=== PATIENT | female | born 1950 | race Caucasian/White ===

== ENCOUNTER 2016-06-22 12:39 | Inpatient (IN) | payer OTHER ==
[~2016-06-22] VITALS: Ht 157.5 cm; Wt 98.9 kg
[2016-06-22 12:39] VITALS: BP_SYST 146
[2016-06-22 14:10] LABS: BASOPHILS % (AUTO) 0.4 % (0.0-2.0); EOSINOPHILS # (AUTO) 0.2 K/uL (0.0-0.4); HEMOGLOBIN 10.7 g/dL (12.0-16.0); MEAN CORPUSCULAR HEMOGLOBIN 36 pg (27-31); WHITE BLOOD COUNT (AUTO) 9.8 K/uL (4.8-10.8)
[2016-06-22 14:20] LABS: ANION GAP 10 (5-15); CHLORIDE 95 mmol/L (98-107); GLUCOSE 354 mg/dL (70-99); POTASSIUM 3.5 mmol/L (3.5-5.1); SODIUM SERUM 127 mmol/L (136-145); UREA NITROGEN, BLOOD 37 mg/dL (8-21)
[2016-06-22 14:21] LABS: EOSINOPHILS % (AUTO) 1.7 % (0.0-4.0); GFR AFRICAN AMERICAN 34 mL/min (>90); MEAN CORPUSCULAR HGB CONC 34 % (32-36); MEAN CORPUSCULAR VOLUME 107 fL (79.0-98.0); MONOCYTES # (AUTO) 0.9 K/uL (0.0-1.0); MONOCYTES % (AUTO) 8.9 % (1.7-9.3); NEUTROPHILS # (AUTO) 7.7 K/uL (1.8-7.7); PLATELET COUNT (AUTO) 258 K/uL (130-430); RED CELL DISTRIBUTION WIDTH 18.4 % (9.0-15.0)
[2016-06-22 14:23] LABS: INR 1.1 (0.8-1.2); PROTHROMBIN TIME 11.9 SECS (9.5-12.5)
[2016-06-22 14:37] LABS: ALANINE AMINOTRANSFERASE 60 U/L (12-78); ALBUMIN 1.7 g/dL (3.4-4.8); ASPARTATE AMINOTRANSFERASE 87 U/L (10-37); TOTAL BILIRUBIN 1.7 mg/dL (0.0-1.0)
[2016-06-22 14:38] LABS: ALCOHOL, BLOOD < 3 mg/dL (<10)
[2016-06-22] MEDS ORDERED: PIPERACILLIN/TAZO 3.375 GM in NS 50 ML IV ONE (15:00)
[2016-06-22] MEDS ORDERED: NS 500 ML IV ONE (15:00)
[2016-06-22] MEDS ORDERED: LACTULOSE 20 GM/30 ML UDC PO ONE ×2 (15:00→16:30)
[2016-06-22] MEDS ORDERED: ONDANSETRON HCL 4 MG/2 ML VIAL IVP ONE (15:45)
[2016-06-22 16:05] LABS: BILIRUBIN,URINE NEGATIVE (NEGATIVE); BLOOD, URINE NEGATIVE (NEGATIVE); CLARITY/URINE HAZY (CLEAR); COLOR,URINE YELLOW (YELLOW); GLUCOSE,URINE NEGATIVE (NEGATIVE); KETONES,URINE TRACE (NEGATIVE); LEUKOCYTE ESTERASE ,URINE NEGATIVE (NEGATIVE); NITRITE, URINE NEGATIVE (NEGATIVE); PROTEIN URINE NEGATIVE (NEGATIVE); UROBILINOGEN,URINE 0.2 (0.2-1.0)
[2016-06-22] MEDS ORDERED: DEXTROSE 50% JECT 50 ML DISP.SYRIN IVP PRN (16:15)
[2016-06-22 16:20] LABS: BARBITURATE, URINE NEGATIVE (NEG <=200); BENZODIAZEPINE, URINE NEGATIVE (NEG <=150); CANNABINOID, URINE NEGATIVE (NEG <=50); COCAINE, URINE NEGATIVE (NEG <=150); METHAMPHETAMINES SCREEN,URINE NEGATIVE (NEG <=500); OPIATE, URINE NEGATIVE (NEG <=100); PHENCYCLIDINE SCREEN,URINE NEGATIVE (NEG <=25); UR TRICYCLIC ANTIDEPRESSANTS NEGATIVE (NEG <=300); URINE AMPHETAMINE NEGATIVE (NEG <=500); URINE METHADONE NEGATIVE (NEG <=200); URINE OXYCODONE SCREEN NEGATIVE (NEG <=100); URINE PROPOXYPHENE SCREEN NEGATIVE (NEG <=300)
[2016-06-22 16:25] VITALS: BP_SYST 117
[2016-06-22 16:28] LABS: BACTERIA,URINE MODERATE /HPF (None Seen); RBC,URINE 0-3 /HPF (0-3)
[2016-06-22 16:29] LABS: FINE GRANULAR CASTS,URINE 0-1 /LPF (None Seen); HYALINE CASTS, URINE 0-2 /LPF (None Seen)
[2016-06-22] MEDS ORDERED: LEVOFLOXACIN 250 MG/D5W 50 ML IV SCH ×2 (16:30→21:00)
[2016-06-22 16:42] VITALS: BP_SYST 104
[2016-06-22] MEDS: NACL 0.9% 1,000 ML IV SCH ×2 (16:54→23:51)
[2016-06-22] MEDS ORDERED: LEVOFLOXACIN 500 MG/D5W 100 ML IV ONE (17:00)
[2016-06-22] MEDS: ERYTHROMYCIN BASE 500 MG TABLET PO SCH ×2 (18:10→23:54)
[2016-06-22] MEDS: INSULIN REGULAR, HUMAN 100 UNITS/ML, 10 ML VIAL (novoLIN R) SUBCUT PRN ×2 (18:12→20:37)
[2016-06-22] MEDS ORDERED: MIDO5TAB20 PO (19:31)
[2016-06-22] MEDS ORDERED: CALC-1197 PO (19:31)
[2016-06-22] MEDS ORDERED: RIFA550T5 PO (19:31)
[2016-06-22] MEDS ORDERED: NPH,100V SUBCUT (19:31)
[2016-06-22] MEDS ORDERED: LACT10SO66 PO (19:31)
[2016-06-22] MEDS ORDERED: METO2.5T6 PO (19:31)
[2016-06-22] MEDS ORDERED: DEXT-81 PO (19:31)
[2016-06-22] MEDS ORDERED: loratadine (19:31)
[2016-06-22] MEDS ORDERED: DIPH25CA83 PO (19:31)
[2016-06-22] MEDS ORDERED: TRAM100T13 PO (19:31)
[2016-06-22] MEDS ORDERED: ASCO500T20 PO (19:31)
[2016-06-22] MEDS ORDERED: ASPI-1063 PO (19:31)
[2016-06-22] MEDS ORDERED: SPIR25TA PO (19:31)
[2016-06-22] MEDS ORDERED: [UNRECOGNIZED DRUG - OTHER] (19:31)
[2016-06-22] MEDS ORDERED: ALLO100T PO (19:31)
[2016-06-22] MEDS ORDERED: FERR256T PO (19:31)
[2016-06-22] MEDS ORDERED: MULT-1089 PO (19:31)
[2016-06-22] MEDS ORDERED: FURO80TA3 PO (19:31)
[2016-06-22] MEDS: LACTULOSE 20 GM/30 ML UDC PO SCH (20:32)
[2016-06-22 20:38] VITALS: BP_SYST 118
[2016-06-23 00:22] VITALS: BP_SYST 120
[2016-06-23 04:46] VITALS: BP_SYST 112
[2016-06-23] MEDS: NACL 0.9% 1,000 ML IV SCH ×2 (06:15→09:35)
[2016-06-23] MEDS: INSULIN REGULAR, HUMAN 100 UNITS/ML, 10 ML VIAL (novoLIN R) SUBCUT PRN ×4 (06:19→22:11)
[2016-06-23] MEDS: ERYTHROMYCIN BASE 500 MG TABLET PO SCH ×2 (06:20→11:29)
[2016-06-23 07:46] LABS: BASOPHILS # (AUTO) 0.1 K/uL (0.0-0.2); BASOPHILS % (AUTO) 0.7 % (0.0-2.0); EOSINOPHILS # (AUTO) 0.4 K/uL (0.0-0.4); EOSINOPHILS % (AUTO) 4.9 % (0.0-4.0); HEMATOCRIT 27.6 % (36-48); LYMPHOCYTES # (AUTO) 1.1 K/uL (1.0-5.5); LYMPHOCYTES % (AUTO) 12.8 % (20.5-51.5); MEAN CORPUSCULAR HEMOGLOBIN 35 pg (27-31); MEAN CORPUSCULAR HGB CONC 33 % (32-36); MEAN CORPUSCULAR VOLUME 106 fL (79.0-98.0); MONOCYTES # (AUTO) 0.9 K/uL (0.0-1.0); MONOCYTES % (AUTO) 10.1 % (1.7-9.3); NEUTROPHILS # (AUTO) 5.9 K/uL (1.8-7.7); NEUTROPHILS % (AUTO) 71.5 % (40.0-70.0); PLATELET COUNT (AUTO) 249 K/uL (130-430); RED BLOOD CELL COUNT(AUTO) 2.59 MIL/uL (4.2-6.2); RED CELL DISTRIBUTION WIDTH 18.2 % (9.0-15.0); WHITE BLOOD COUNT (AUTO) 8.4 K/uL (4.8-10.8)
[2016-06-23 08:11] LABS: IRON (SERUM) 73 mcg/dL (37-145)
[2016-06-23 08:12] VITALS: BP_SYST 128
[2016-06-23 08:12] LABS: TOTAL IRON BIND. CAPACITY 196 ug/dL (250-450)
[2016-06-23 08:17] LABS: ALBUMIN 1.4 g/dL (3.4-4.8); CALCIUM 8.1 mg/dL (8.4-11.0); CREATININE 1.74 mg/dL (0.55-1.30); POTASSIUM 3.3 mmol/L (3.5-5.1); THYROID STIMULATING HORMONE 1.24 uIu/mL (0.34-4.82); TOTAL BILIRUBIN 1.3 mg/dL (0.0-1.0); TOTAL PROTEIN, SERUM 4.4 g/dL (6.4-8.3)
[2016-06-23] MEDS: LACTULOSE 20 GM/30 ML UDC PO SCH ×3 (08:39→22:06)
[2016-06-23] MEDS ORDERED: ASCORBIC ACID 500 MG TABLET PO SCH (09:00)
[2016-06-23 12:26] VITALS: BP_SYST 117
[2016-06-23] MEDS ORDERED: POTASSIUM CHLORIDE 20 MEQ TAB.PRT.SR PO ONE (14:15)
[2016-06-23] MEDS: LACTOBACILLUS RHAMNOSUS GG 1 CAP CAPSULE PO SCH ×2 (15:11→22:07)
[2016-06-23] MEDS ORDERED: MIDODRINE HCL 5 MG TABLET (PROAMATINE) PO ONE (16:15)
[2016-06-23] MEDS ORDERED: ALLOPURINOL 100 MG TABLET (ZYLOPRIM) PO ONE (16:15)
[2016-06-23] MEDS ORDERED: ASPIRIN 81 MG TABLET(ECOTRIN) PO ONE (16:30)
[2016-06-23] MEDS ORDERED: MULTIVITAMINS TAB 1 TABLET PO ONE (16:30)
[2016-06-23] MEDS ORDERED: ASCORBIC ACID 500 MG TABLET PO ONE ×2 (16:30→16:45)
[2016-06-23] MEDS ORDERED: LEVOFLOXACIN 250 MG/D5W 50 ML IV SCH (16:30)
[2016-06-23] MEDS ORDERED: INSULIN NPH 100 UNITS/ML 10 ML VIAL SUBCUT ONE (16:45)
[2016-06-23 16:57] VITALS: BP_SYST 113
[2016-06-23] MEDS: VANCOMYCIN HCL 250 MG CAPSULE PO SCH ×2 (16:59→22:07)
[2016-06-23 18:49] LABS: BILIRUBIN,URINE NEGATIVE (NEGATIVE); BLOOD, URINE NEGATIVE (NEGATIVE); CLARITY/URINE CLEAR (CLEAR); COLOR,URINE YELLOW (YELLOW); GLUCOSE,URINE 1+ (NEGATIVE); KETONES,URINE TRACE (NEGATIVE); LEUKOCYTE ESTERASE ,URINE NEGATIVE (NEGATIVE); NITRITE, URINE NEGATIVE (NEGATIVE); PROTEIN URINE NEGATIVE (NEGATIVE); UROBILINOGEN,URINE 0.2 (0.2-1.0)
[2016-06-23 19:04] LABS: BACTERIA,URINE RARE /HPF (None Seen); RBC,URINE NONE SEEN /HPF (0-3); YEAST,URINE Moderate /HPF (None Seen)
[2016-06-23 20:07] VITALS: BP_SYST 125
[2016-06-23] MEDS ORDERED: metroNIDAZOLE 500 MG TABLET PO SCH (21:00)
[2016-06-23] MEDS: POTASSIUM CHLORIDE 20 MEQ TAB.PRT.SR PO SCH (22:07)
[2016-06-23] MEDS: MIDODRINE HCL 5 MG TABLET (PROAMATINE) PO SCH (22:08)
[2016-06-23] MEDS: metroNIDAZOLE 500 mg/NS 100 ML IV SCH (22:08)
[2016-06-24] VITALS (7 sets, daily range): BP systolic 116–145
[2016-06-24] MEDS: metroNIDAZOLE 500 mg/NS 100 ML IV SCH ×3 (06:38→21:37)
[2016-06-24] MEDS: INSULIN NPH 100 UNITS/ML 10 ML VIAL SUBCUT SCH (06:44)
[2016-06-24] MEDS: INSULIN REGULAR, HUMAN 100 UNITS/ML, 10 ML VIAL (novoLIN R) SUBCUT PRN ×4 (06:45→21:36)
[2016-06-24 07:14] LABS: BASOPHILS # (AUTO) 0.1 K/uL (0.0-0.2); BASOPHILS % (AUTO) 0.6 % (0.0-2.0); EOSINOPHILS # (AUTO) 0.7 K/uL (0.0-0.4); EOSINOPHILS % (AUTO) 6.4 % (0.0-4.0); HEMATOCRIT 27.7 % (36-48); HEMOGLOBIN 9.3 g/dL (12.0-16.0); LYMPHOCYTES # (AUTO) 1.4 K/uL (1.0-5.5); MEAN CORPUSCULAR HEMOGLOBIN 36 pg (27-31); MEAN CORPUSCULAR HGB CONC 34 % (32-36); MEAN CORPUSCULAR VOLUME 107 fL (79.0-98.0); MONOCYTES # (AUTO) 1.1 K/uL (0.0-1.0); MONOCYTES % (AUTO) 10.9 % (1.7-9.3); NEUTROPHILS # (AUTO) 7.1 K/uL (1.8-7.7); NEUTROPHILS % (AUTO) 68.1 % (40.0-70.0); PLATELET COUNT (AUTO) 223 K/uL (130-430); RED BLOOD CELL COUNT(AUTO) 2.59 MIL/uL (4.2-6.2); RED CELL DISTRIBUTION WIDTH 18.9 % (9.0-15.0); WHITE BLOOD COUNT (AUTO) 10.4 K/uL (4.8-10.8)
[2016-06-24 07:36] LABS: CALCIUM 7.6 mg/dL (8.4-11.0); CREATININE 1.56 mg/dL (0.55-1.30); POTASSIUM 3.8 mmol/L (3.5-5.1)
[2016-06-24 07:52] LABS: TOTAL BILIRUBIN 1.4 mg/dL (0.0-1.0)
[2016-06-24 07:53] LABS: ALBUMIN 1.4 g/dL (3.4-4.8); TOTAL PROTEIN, SERUM 4.3 g/dL (6.4-8.3)
[2016-06-24] MEDS ORDERED: [UNRECOGNIZED DRUG - OTHER] PO SCH (09:00)
[2016-06-24] MEDS ORDERED: VITAMIN D3 E PO SCH (09:00)
[2016-06-24] MEDS ORDERED: CALCIUM CARBONATE PO SCH (09:00)
[2016-06-24] MEDS: ASPIRIN 81 MG TABLET(ECOTRIN) PO SCH (09:56)
[2016-06-24] MEDS: MULTIVITAMINS TAB 1 TABLET PO SCH (09:56)
[2016-06-24] MEDS: LACTULOSE 20 GM/30 ML UDC PO SCH ×3 (09:56→21:37)
[2016-06-24] MEDS: POTASSIUM CHLORIDE 20 MEQ TAB.PRT.SR PO SCH ×3 (09:56→21:36)
[2016-06-24] MEDS: VANCOMYCIN HCL 250 MG CAPSULE PO SCH ×4 (09:56→21:36)
[2016-06-24] MEDS: LACTOBACILLUS RHAMNOSUS GG 1 CAP CAPSULE PO SCH ×3 (09:56→21:36)
[2016-06-24] MEDS: ASCORBIC ACID 500 MG TABLET PO SCH (09:57)
[2016-06-24] MEDS: SPIRONOLACTONE 25 MG TABLET (ALDACTONE) PO SCH (09:57)
[2016-06-24] MEDS: ALLOPURINOL 100 MG TABLET (ZYLOPRIM) PO SCH (09:57)
[2016-06-24] MEDS: MIDODRINE HCL 5 MG TABLET (PROAMATINE) PO SCH (09:57)
[2016-06-24] MEDS ORDERED: FUROSEMIDE 40 MG TABLET PO SCH (13:45)
[2016-06-24] MEDS ORDERED: FUROSEMIDE 40 MG/4 ML VIAL IVP ONE (14:30)
[2016-06-24] MEDS ORDERED: INSULIN NPH 100 UNITS/ML 10 ML VIAL SUBCUT SCH (17:00)
[2016-06-24] MEDS: traMADol HCL HCL 50 MG TABLET (ULTRAM) PO PRN (21:40)
[2016-06-25 00:33] VITALS: BP_SYST 123
[2016-06-25 05:25] VITALS: BP_SYST 103
[2016-06-25] MEDS: metroNIDAZOLE 500 mg/NS 100 ML IV SCH ×3 (06:29→21:43)
[2016-06-25] MEDS: INSULIN NPH 100 UNITS/ML 10 ML VIAL SUBCUT SCH ×2 (06:30→21:02)
[2016-06-25 06:31] LABS: CALCIUM 7.4 mg/dL (8.4-11.0); CREATININE 1.55 mg/dL (0.55-1.30); POTASSIUM 3.8 mmol/L (3.5-5.1)
[2016-06-25 06:41] LABS: BASOPHILS % (AUTO) 0.4 % (0.0-2.0); EOSINOPHILS # (AUTO) 0.6 K/uL (0.0-0.4); EOSINOPHILS % (AUTO) 6.4 % (0.0-4.0); HEMATOCRIT 26.8 % (36-48); HEMOGLOBIN 9.1 g/dL (12.0-16.0); LYMPHOCYTES # (AUTO) 1.2 K/uL (1.0-5.5); LYMPHOCYTES % (AUTO) 12.6 % (20.5-51.5); MEAN CORPUSCULAR HEMOGLOBIN 36 pg (27-31); MEAN CORPUSCULAR HGB CONC 34 % (32-36); MEAN CORPUSCULAR VOLUME 107 fL (79.0-98.0); MONOCYTES # (AUTO) 0.8 K/uL (0.0-1.0); NEUTROPHILS # (AUTO) 6.7 K/uL (1.8-7.7); NEUTROPHILS % (AUTO) 71.6 % (40.0-70.0); PLATELET COUNT (AUTO) 199 K/uL (130-430); RED CELL DISTRIBUTION WIDTH 18.4 % (9.0-15.0); WHITE BLOOD COUNT (AUTO) 9.3 K/uL (4.8-10.8)
[2016-06-25 08:00] VITALS: BP_SYST 101
[2016-06-25] MEDS: SPIRONOLACTONE 25 MG TABLET (ALDACTONE) PO SCH (09:00)
[2016-06-25] MEDS: FUROSEMIDE 40 MG/4 ML VIAL IVP SCH (09:00)
[2016-06-25] MEDS: ASPIRIN 81 MG TABLET(ECOTRIN) PO SCH (10:22)
[2016-06-25] MEDS: POTASSIUM CHLORIDE 20 MEQ TAB.PRT.SR PO SCH ×3 (10:22→20:42)
[2016-06-25] MEDS: ASCORBIC ACID 500 MG TABLET PO SCH (10:23)
[2016-06-25] MEDS: CALCIUM CARBONATE/VITAMIN D3 1 TAB TABLET PO SCH (10:23)
[2016-06-25] MEDS: MULTIVITAMINS TAB 1 TABLET PO SCH (10:23)
[2016-06-25] MEDS: LACTOBACILLUS RHAMNOSUS GG 1 CAP CAPSULE PO SCH ×3 (10:23→20:41)
[2016-06-25] MEDS: VANCOMYCIN HCL 250 MG CAPSULE PO SCH ×4 (10:23→20:41)
[2016-06-25] MEDS: ALLOPURINOL 100 MG TABLET (ZYLOPRIM) PO SCH (10:23)
[2016-06-25] MEDS: LACTULOSE 20 GM/30 ML UDC PO SCH ×3 (10:23→20:42)
[2016-06-25] MEDS: FERROUS GLUCONATE 300 MG TABLET PO SCH (10:31)
[2016-06-25 12:15] VITALS: BP_SYST 94
[2016-06-25] MEDS: INSULIN REGULAR, HUMAN 100 UNITS/ML, 10 ML VIAL (novoLIN R) SUBCUT PRN (12:53)
[2016-06-25 16:20] VITALS: BP_SYST 99
[2016-06-25] MEDS ORDERED: SODIUM CHLORIDE 3% *HI-ALERT* 300 ML IV ONE (16:30)
[2016-06-25] MEDS: INSULIN ASPART 100 UNITS/ML, 10 ML VIAL SUBCUT SCH (18:21)
[2016-06-25] MEDS: INSULIN ASPART 100 UNITS/ML, 10 ML VIAL (NovoLOG) SUBCUT PRN ×2 (18:22→21:04)
[2016-06-25 20:00] VITALS: BP_SYST 109
[2016-06-25] MEDS: traMADol HCL HCL 50 MG TABLET (ULTRAM) PO PRN (23:32)
[2016-06-26 00:06] VITALS: BP_SYST 112
[2016-06-26 04:56] VITALS: BP_SYST 115
[2016-06-26] MEDS: metroNIDAZOLE 500 mg/NS 100 ML IV SCH ×2 (05:13→14:51)
[2016-06-26] MEDS: INSULIN NPH 100 UNITS/ML 10 ML VIAL SUBCUT SCH ×2 (06:46→20:22)
[2016-06-26 06:58] LABS: BASOPHILS % (AUTO) 0.5 % (0.0-2.0); EOSINOPHILS # (AUTO) 0.5 K/uL (0.0-0.4); EOSINOPHILS % (AUTO) 5.5 % (0.0-4.0); HEMATOCRIT 28.4 % (36-48); HEMOGLOBIN 9.6 g/dL (12.0-16.0); LYMPHOCYTES # (AUTO) 1.1 K/uL (1.0-5.5); LYMPHOCYTES % (AUTO) 11.4 % (20.5-51.5); MEAN CORPUSCULAR HEMOGLOBIN 36 pg (27-31); MEAN CORPUSCULAR HGB CONC 34 % (32-36); MONOCYTES % (AUTO) 10.1 % (1.7-9.3); NEUTROPHILS # (AUTO) 7.1 K/uL (1.8-7.7); NEUTROPHILS % (AUTO) 72.5 % (40.0-70.0); PLATELET COUNT (AUTO) 225 K/uL (130-430); RED BLOOD CELL COUNT(AUTO) 2.66 MIL/uL (4.2-6.2); RED CELL DISTRIBUTION WIDTH 18.3 % (9.0-15.0); WHITE BLOOD COUNT (AUTO) 9.7 K/uL (4.8-10.8)
[2016-06-26 07:13] LABS: MEAN CORPUSCULAR VOLUME 106 fL (79.0-98.0)
[2016-06-26 07:14] LABS: CALCIUM 7.4 mg/dL (8.4-11.0); CREATININE 1.24 mg/dL (0.55-1.30); POTASSIUM 4.4 mmol/L (3.5-5.1)
[2016-06-26 08:00] VITALS: BP_SYST 124
[2016-06-26] MEDS: INSULIN ASPART 100 UNITS/ML, 10 ML VIAL (NovoLOG) SUBCUT PRN ×4 (08:13→20:21)
[2016-06-26] MEDS: INSULIN ASPART 100 UNITS/ML, 10 ML VIAL SUBCUT SCH ×3 (08:13→18:00)
[2016-06-26] MEDS: SPIRONOLACTONE 25 MG TABLET (ALDACTONE) PO SCH (09:00)
[2016-06-26] MEDS: CALCIUM CARBONATE/VITAMIN D3 1 TAB TABLET PO SCH (09:16)
[2016-06-26] MEDS: ASCORBIC ACID 500 MG TABLET PO SCH (09:16)
[2016-06-26] MEDS: ASPIRIN 81 MG TABLET(ECOTRIN) PO SCH (09:16)
[2016-06-26] MEDS: LACTOBACILLUS RHAMNOSUS GG 1 CAP CAPSULE PO SCH ×3 (09:16→20:09)
[2016-06-26] MEDS: MULTIVITAMINS TAB 1 TABLET PO SCH (09:16)
[2016-06-26] MEDS: VANCOMYCIN HCL 250 MG CAPSULE PO SCH ×4 (09:16→20:09)
[2016-06-26] MEDS: LACTULOSE 20 GM/30 ML UDC PO SCH ×3 (09:17→20:09)
[2016-06-26] MEDS: ALLOPURINOL 100 MG TABLET (ZYLOPRIM) PO SCH (09:17)
[2016-06-26] MEDS: FUROSEMIDE 40 MG/4 ML VIAL IVP SCH (09:17)
[2016-06-26] MEDS: POTASSIUM CHLORIDE 20 MEQ TAB.PRT.SR PO SCH ×3 (09:17→20:09)
[2016-06-26] MEDS: FERROUS GLUCONATE 300 MG TABLET PO SCH (09:19)
[2016-06-26 12:29] VITALS: BP_SYST 123
[2016-06-26 15:32] VITALS: BP_SYST 105
[2016-06-26] MEDS ORDERED: FUROSEMIDE 40 MG/4 ML VIAL IVP ONE (17:30)
[2016-06-26] MEDS ORDERED: FLUCONAZOLE 200 MG TABLET (DIFLUCAN) PO ONE (18:00)
[2016-06-26 18:24] LABS: CALCIUM 7.6 mg/dL (8.4-11.0); CREATININE 1.46 mg/dL (0.55-1.30); POTASSIUM 4.5 mmol/L (3.5-5.1)
[2016-06-26 20:00] VITALS: BP_SYST 96
[2016-06-27 00:24] VITALS: BP_SYST 106
[2016-06-27 04:59] VITALS: BP_SYST 127
[2016-06-27] MEDS: INSULIN NPH 100 UNITS/ML 10 ML VIAL SUBCUT SCH (05:56)
[2016-06-27 07:33] LABS: ALBUMIN 1.3 g/dL (3.4-4.8); CALCIUM 7.7 mg/dL (8.4-11.0); CREATININE 1.29 mg/dL (0.55-1.30); POTASSIUM 5.1 mmol/L (3.5-5.1); TOTAL BILIRUBIN 1.6 mg/dL (0.0-1.0); TOTAL PROTEIN, SERUM 4.4 g/dL (6.4-8.3)
[2016-06-27 07:48] LABS: BASOPHILS # (AUTO) 0.2 K/uL (0.0-0.2); BASOPHILS % (AUTO) 1.8 % (0.0-2.0); EOSINOPHILS # (AUTO) 0.4 K/uL (0.0-0.4); EOSINOPHILS % (AUTO) 3.9 % (0.0-4.0); HEMATOCRIT 29.8 % (36-48); HEMOGLOBIN 10.3 g/dL (12.0-16.0); LYMPHOCYTES # (AUTO) 0.9 K/uL (1.0-5.5); LYMPHOCYTES % (AUTO) 9.6 % (20.5-51.5); MEAN CORPUSCULAR HEMOGLOBIN 37 pg (27-31); MEAN CORPUSCULAR HGB CONC 34 % (32-36); MEAN CORPUSCULAR VOLUME 108 fL (79.0-98.0); MONOCYTES # (AUTO) 0.4 K/uL (0.0-1.0); MONOCYTES % (AUTO) 4.3 % (1.7-9.3); NEUTROPHILS # (AUTO) 7.7 K/uL (1.8-7.7); NEUTROPHILS % (AUTO) 80.4 % (40.0-70.0); PLATELET COUNT (AUTO) 202 K/uL (130-430); RED BLOOD CELL COUNT(AUTO) 2.76 MIL/uL (4.2-6.2); RED CELL DISTRIBUTION WIDTH 18.2 % (9.0-15.0); WHITE BLOOD COUNT (AUTO) 9.6 K/uL (4.8-10.8)
[2016-06-27 08:00] VITALS: BP_SYST 116
[2016-06-27] MEDS: INSULIN ASPART 100 UNITS/ML, 10 ML VIAL SUBCUT SCH (08:18)
[2016-06-27] MEDS: LACTULOSE 20 GM/30 ML UDC PO SCH (09:00)
[2016-06-27] MEDS ORDERED: FLUCONAZOLE 100 MG TABLET (DIFLUCAN) PO SCH (09:00)
[2016-06-27] MEDS: FUROSEMIDE 40 MG/4 ML VIAL IVP SCH ×2 (09:00→10:04)
[2016-06-27] MEDS ORDERED: FUROSEMIDE 40 MG TABLET PO SCH (09:00)
[2016-06-27] MEDS: VANCOMYCIN HCL 250 MG CAPSULE PO SCH (10:02)
[2016-06-27] MEDS: LACTOBACILLUS RHAMNOSUS GG 1 CAP CAPSULE PO SCH (10:02)
[2016-06-27] MEDS: ASPIRIN 81 MG TABLET(ECOTRIN) PO SCH (10:02)
[2016-06-27] MEDS: MULTIVITAMINS TAB 1 TABLET PO SCH (10:02)
[2016-06-27] MEDS: ALLOPURINOL 100 MG TABLET (ZYLOPRIM) PO SCH (10:02)
[2016-06-27] MEDS: FERROUS GLUCONATE 300 MG TABLET PO SCH (10:02)
[2016-06-27] MEDS: SPIRONOLACTONE 25 MG TABLET (ALDACTONE) PO SCH (10:02)
[2016-06-27] MEDS: ASCORBIC ACID 500 MG TABLET PO SCH (10:02)
[2016-06-27] MEDS: CALCIUM CARBONATE/VITAMIN D3 1 TAB TABLET PO SCH (10:02)
[2016-06-27] MEDS: POTASSIUM CHLORIDE 20 MEQ TAB.PRT.SR PO SCH (10:03)
[2016-06-27 12:16] VITALS: BP_SYST 98
== END 2016-06-27 11:05 | disposition left against medical advice (07) | DRG 441 ==
LOC: SED 12:39 → STU 15:17 → SMU 06-23 15:00
PROVIDERS: ADMIT Internal Medicine; ATTEND Internal Medicine
PROC: 0W9G3ZZ Drainage of Peritoneal Cavity, Percutaneous Approach (ICD-10-PCS; principal; 2016-06-25)
DX: K72.90 Hepatic failure, unspecified without coma (principal); N17.0 Acute kidney failure with tubular necrosis; E43 Unspecified severe protein-calorie malnutrition; A04.7 Enterocolitis due to Clostridium difficile; E87.1 Hypo-osmolality and hyponatremia; B37.49 Other urogenital candidiasis; R18.8 Other ascites; K74.60 Unspecified cirrhosis of liver; D63.8 Anemia in other chronic diseases classified elsewhere; I12.9 Hypertensive chronic kidney disease with stage 1 through stage 4 chronic kidney disease, or unspecified chronic kidney disease; N18.9 Chronic kidney disease, unspecified; E66.9 Obesity, unspecified; N13.9 Obstructive and reflux uropathy, unspecified; E83.41 Hypermagnesemia; Z53.21 Procedure and treatment not carried out due to patient leaving prior to being seen by health care provider; E87.6 Hypokalemia; E11.22 Type 2 diabetes mellitus with diabetic chronic kidney disease; E11.65 Type 2 diabetes mellitus with hyperglycemia; E11.21 Type 2 diabetes mellitus with diabetic nephropathy; Z88.1 Allergy status to other antibiotic agents; Z68.39 Body mass index [BMI] 39.0-39.9, adult; Z88.2 Allergy status to sulfonamides; Z88.8 Allergy status to other drugs, medicaments and biological substances; Z90.49 Acquired absence of other specified parts of digestive tract; Z90.710 Acquired absence of both cervix and uterus
CPT/HCPCS: 36415; 49083; 70450-TC; 71010; 74000-TC; 80048; 80053; 80307; 81000-TC; 82140-TC; 82306; 82962; 83036; 83540-TC; 83550-TC; 83605; 83735-TC; 83880; 84439; 84443-TC; 84484; 85025; 85610-TC; 87040-TC; 87070-TC; 87081; 87086; 87230-TC; 93005; 96361; 96365; 96375; 97110-GP; 97116-GP; 97530-GP; 99291; A5061; C1729; G0482; J1815; J1940; J1956; J2405; J2543; J3490; J7030

== ENCOUNTER 2021-06-14 12:30 | Inpatient (IN) | payer OTHER ==
[~2021-06-14] VITALS: Ht 157.5 cm; Wt 107.5 kg
[2021-06-14 12:30] VITALS: BP_SYST 118
[~2021-06-14 12:30] MED LIST: ALLO100T PO; AMIT10TA6 PO; ASCO500T20 PO; DEXT-150 PO; DIPH25CA83 PO; DOCU-156 PO; FOLI-43 PO; FURO-150 PO; GLIP5TAB13 PO; HYDR-3927 PO; INSU100V SQ; LACT10SO66 PO; LORA10TA7 PO; LOSA50TA3 PO; LOVI40 SUBCUT; MERO500V23 IV; METO-290 PO; MULT-1089 PO; NPH,100I SQ; NPH,100V SUBCUT; NYST15PO2 TP; ONDA4TAB5 PO; PRO40 PO; PROP10TA10 PO; RIFA550T5 PO; SALM1CAP4 PO; SPIR25TA PO; TRAM100T34 PO; VITD2000 PO
--- NOTE | 2021-06-14 12:30 | NUR ---
BROUGHT IN BY [facility] AND PLACED IN BED #3, TRIAGED. REPORT GIVEN TO GUSTABO
--- NOTE | 2021-06-14 12:45 | NUR ---
Dr Parrish evaluating patient at bedside
[2021-06-14] MEDS ORDERED: NACL 0.9% 1,000 ML IV ONE (13:00)
[2021-06-14] MEDS ORDERED: MORPHINE 4 MG INJ. 4 MG/ML VIAL IVP ONE (13:00)
--- NOTE | 2021-06-14 13:30 | NUR ---
[place] of care received at this time, A&Ox4, pt presents to ER with lower back pain, R arm pain after slip and fall in the restroom, pt has Hx of fracture on R shoulder, skin pink and warm, cap refill <3, VSS, respirations even and unlabored.
--- NOTE | 2021-06-14 15:02 | NUR ---
COVID-19 DOTTIE SWAB OBTAINED AND SEND TO THE LAB.
--- NOTE | 2021-06-14 15:14 | NUR ---
16 # FR In and Out catheter with use of sterile technique. Immediate return of 100 ml urine noted. Urine sample collected and sent to lab. Pt tolerated procedure . Patient unable to toilet self.
[2021-06-14 15:34] LABS: BILIRUBIN,URINE NEGATIVE (NEGATIVE); CLARITY/URINE CLOUDY (CLEAR); COLOR,URINE YELLOW (YELLOW); GLUCOSE,URINE NEGATIVE (NEGATIVE); KETONES,URINE NEGATIVE (NEGATIVE); LEUKOCYTE ESTERASE ,URINE NEGATIVE (NEGATIVE); NITRITE, URINE NEGATIVE (NEGATIVE); PROTEIN URINE 3+ (NEGATIVE); UROBILINOGEN,URINE 0.2 (0.2-1.0)
[2021-06-14 15:58] LABS: BLOOD, URINE TRACE (NEGATIVE)
[2021-06-14 16:02] LABS: BACTERIA,URINE MANY /HPF (None Seen); HYALINE CASTS, URINE 0-10 /LPF (None Seen); MUCUS,URINE 2+ /LPF (None Seen)
[2021-06-14 16:04] LABS: OTHER CASTS, URINE MIXED CELL CASTS 1+ /LPF (None Seen)
[2021-06-14 16:06] LABS: BASOPHILS % (AUTO) 0.6 % (0.0-2.0); EOSINOPHILS # (AUTO) 0.5 K/uL (0.0-0.4); EOSINOPHILS % (AUTO) 7.7 % (0.0-4.0); HEMATOCRIT 40.6 % (36-48); HEMOGLOBIN 13.7 g/dL (12.0-16.0); LYMPHOCYTES # (AUTO) 1.2 K/uL (1.0-5.5); LYMPHOCYTES % (AUTO) 20.9 % (20.5-51.5); MEAN CORPUSCULAR HEMOGLOBIN 34 pg (27-31); MEAN CORPUSCULAR HGB CONC 34 % (32-36); MEAN CORPUSCULAR VOLUME 101 fL (79.0-98.0); MONOCYTES # (AUTO) 0.6 K/uL (0.0-1.0); MONOCYTES % (AUTO) 10.3 % (1.7-9.3); NEUTROPHILS # (AUTO) 3.6 K/uL (1.8-7.7); NEUTROPHILS % (AUTO) 60.5 % (40.0-70.0); PLATELET COUNT (AUTO) 172 K/uL (130-430); RED BLOOD CELL COUNT(AUTO) 4.03 MIL/uL (4.2-6.2); RED CELL DISTRIBUTION WIDTH 14.3 % (9.0-15.0); WHITE BLOOD COUNT (AUTO) 5.9 K/uL (4.8-10.8)
[2021-06-14 17:23] LABS: CALCIUM 8.6 mg/dL (8.4-11.0); CREATININE 1.55 mg/dL (0.55-1.30); POTASSIUM 4.6 mmol/L (3.5-5.1)
[2021-06-14 17:29] LABS: ALBUMIN 2.6 g/dL (3.4-4.8); TOTAL BILIRUBIN 0.7 mg/dL (0.0-1.0)
[2021-06-14] MEDS ORDERED: NITROFURANTOIN MONOHYD/M-CRYST 100 MG CAPSULE (MacroBID) PO ONE ×2 (18:15→20:24)
--- NOTE | 2021-06-14 19:10 | NUR ---
Admit bed requested Patient will be admitted to care of . Admitted to MED SURG unit. Diagnosis UTI Inpatient (Yes or No) YES Observation (Yes or No) NO Orientation concerns or request close to nursing station (Yes or No) NO Covid Status NEGTAIVE On vent or bipap NO Isolation requirements NO Needs a sitter NO From Home (Yes or if No enter name of facility) NO Requires Dialysis (Yes or No) NO Med Rec Completed (Yes of No) PENDING
--- NOTE | 2021-06-14 19:20 | NUR ---
Received pt from previous shift. [facility] GLF on 2021, neuropathy pain. Per previous shift RN, Abnormal result on EKG. Pt here s/p GLF in shower, denies head injury. Pt c/o 06/20 back pain constant. Pt denies FLORES, dizziness, double vision, numbness. No laceration or active bleeding noted. Pending admission. Will continue to monitor Addendum: 06/14/21 at 1955 by [email or web address] MO Conrad
[2021-06-14] MEDS ORDERED: METO-290 PO (21:10)
[2021-06-14] MEDS ORDERED: LORazepam 2 MG/ML VIAL IVP PRN (21:15)
[2021-06-14] MEDS ORDERED: ACETAMINOPHEN 325 MG TABLET PO PRN (21:15)
[2021-06-14] MEDS ORDERED: HYDROcodone/ACETAMIN 10-325 MG TAB PO PRN (21:15)
[2021-06-14] MEDS ORDERED: NALOXONE HCL 0.4 MG/ML AMP (NARCAN) IVP PRN (21:15)
[2021-06-14] MEDS ORDERED: ONDANSETRON HCL 4 MG/2 ML VIAL IVP PRN (21:15)
[2021-06-14] MEDS ORDERED: LORATADINE 10 MG TABLET PO PRN (21:15)
--- NOTE | 2021-06-14 21:51 | NUR ---
Transfer note to 112A. by Anamaria HASSAN Pt is AOx4. breathing in room air, no acute distress noted. Patient will be admitted to care of A Paliwal. Admitted to Med surg 112A. Full report was given to MO Roth. Belongings list completed.
[2021-06-14 22:00] VITALS: BP_SYST 166
--- NOTE | 2021-06-14 23:51 | NUR ---
Paged Torsten Rodas s/w Annabel
[2021-06-15] MEDS: NORMAL SALINE 5 ML DISP.SYRIN IVF SCH ×6 (00:05→22:00)
[2021-06-15] MEDS ORDERED: traZODone HCL 50 MG TABLET (DESYREL) PO PRN (00:15)
[2021-06-15] MEDS: PROPRANOLOL HCL 10 MG TABLET (INDERAL) PO SCH ×3 (00:38→21:42)
[2021-06-15] MEDS: LOSARTAN POTASSIUM 50 MG TABLET (COZAAR) PO SCH ×3 (00:38→21:41)
[2021-06-15 04:00] VITALS: BP_SYST 129
--- NOTE | 2021-06-15 05:20 | NUR ---
CONSULT: CONSULT CALLED FOR DR. 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
--- NOTE | 2021-06-15 05:21 | NUR ---
CONSULT: CONSULT CALLED FOR DR. 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
[2021-06-15 05:51] LABS: BASOPHILS % (AUTO) 0.7 % (0.0-2.0); EOSINOPHILS # (AUTO) 0.4 K/uL (0.0-0.4); EOSINOPHILS % (AUTO) 8.9 % (0.0-4.0); HEMATOCRIT 37.4 % (36-48); HEMOGLOBIN 12.7 g/dL (12.0-16.0); LYMPHOCYTES # (AUTO) 1.4 K/uL (1.0-5.5); LYMPHOCYTES % (AUTO) 29.3 % (20.5-51.5); MEAN CORPUSCULAR HEMOGLOBIN 34 pg (27-31); MEAN CORPUSCULAR HGB CONC 34 % (32-36); MEAN CORPUSCULAR VOLUME 100 fL (79.0-98.0); MONOCYTES # (AUTO) 0.6 K/uL (0.0-1.0); MONOCYTES % (AUTO) 11.4 % (1.7-9.3); NEUTROPHILS # (AUTO) 2.4 K/uL (1.8-7.7); NEUTROPHILS % (AUTO) 49.7 % (40.0-70.0); PLATELET COUNT (AUTO) 152 K/uL (130-430); RED BLOOD CELL COUNT(AUTO) 3.75 MIL/uL (4.2-6.2); RED CELL DISTRIBUTION WIDTH 14.3 % (9.0-15.0); WHITE BLOOD COUNT (AUTO) 4.9 K/uL (4.8-10.8)
[2021-06-15 05:56] LABS: CALCIUM 7.7 mg/dL (8.4-11.0); CREATININE 1.34 mg/dL (0.55-1.30); POTASSIUM 3.8 mmol/L (3.5-5.1)
[2021-06-15] MEDS: INSULIN REGULAR, HUMAN 100 UNITS/ML, 10 ML VIAL (humuLIN R) SUBCUT PRN ×3 (06:18→17:34)
[2021-06-15] MEDS: METOCLOPRAMIDE HCL 10 MG TABLET PO SCH ×4 (06:22→21:43)
[2021-06-15] MEDS ORDERED: ACETAMINOPHEN 325 MG TABLET PO PRN (07:15)
[2021-06-15] MEDS ORDERED: traMADol HCL HCL 50 MG TABLET (ULTRAM) PO PRN (07:15)
--- NOTE | 2021-06-15 07:30 | NUR ---
RECEIVED PT FROM MO ARCE. ASSUMED ALL CARE.
[2021-06-15 08:00] VITALS: BP_SYST 135
[2021-06-15] MEDS: MEROPENEM 500 MG in NS 50 ML IV SCH ×2 (08:49→21:41)
[2021-06-15] MEDS ORDERED: LOSARTAN POTASSIUM 50 MG TABLET (COZAAR) PO SCH (09:00)
[2021-06-15] MEDS ORDERED: MEROPENEM 500 MG VIAL IV SCH (09:00)
[2021-06-15] MEDS ORDERED: PROPRANOLOL HCL 10 MG TABLET (INDERAL) PO SCH (09:00)
[2021-06-15] MEDS: DOCUSATE SODIUM 100 MG CAPSULE PO SCH (09:00)
[2021-06-15] MEDS: LACTULOSE 20 GM/30 ML UDC PO SCH ×3 (09:01→21:42)
[2021-06-15] MEDS: PANTOPRAZOLE SODIUM 40 MG TAB PO SCH (09:02)
[2021-06-15] MEDS: OMEGA-3/DHA/EPA/FISH OIL 1 GM CAPSULE PO SCH (09:02)
[2021-06-15] MEDS: MULTIVITAMINS TAB 1 TABLET PO SCH (09:02)
[2021-06-15] MEDS: ASCORBIC ACID 500 MG TABLET PO SCH (09:03)
[2021-06-15] MEDS: RIFAXIMIN 550 MG TABLET PO SCH ×2 (09:03→21:41)
[2021-06-15] MEDS: CHOLECALCIFEROL (VITAMIN D3) 2,000 UNIT TABLET PO SCH (09:03)
[2021-06-15] MEDS: ALLOPURINOL 100 MG TABLET (ZYLOPRIM) PO SCH (09:03)
[2021-06-15] MEDS: FOLIC ACID 1 MG TABLET PO SCH (09:07)
[2021-06-15] MEDS: FUROSEMIDE 20 MG TABLET PO SCH (09:14)
[2021-06-15] MEDS: ENOXAPARIN SODIUM 40 MG/0.4 ML SYRINGE SUBCUT SCH (09:16)
[2021-06-15] MEDS: INSULIN NPH 100 UNITS/ML 10 ML VIAL SUBCUT SCH (09:18)
[2021-06-15] MEDS: NYSTATIN 15 GM TOPICAL POWDER TP SCH ×2 (09:29→21:43)
[2021-06-15] MEDS ORDERED: IPRATROPIUM BROM 0.5 MG/2.5 ML VIAL.NEB (ATROVENT) INH PRN (10:00)
[2021-06-15] MEDS ORDERED: ALBUTEROL SULFATE 0.083% 2.5 MG/3 ML VIAL.NEB INH PRN (10:00)
--- NOTE | 2021-06-15 10:30 | NUR ---
SCHEDULED MEDS GIVEN AND TOLERATED WELL. DENIES PAIN. RESP E/U. ON RA. NO COUGH OR SOB. PT DENIES N/V/D/C. IV CATH TO LAC 20G FLUSHED AND PATENT. CALL LIGHT WITHIN REACH.
[2021-06-15 10:38] VITALS: BP_SYST 121
[2021-06-15 12:00] VITALS: BP_SYST 129
[2021-06-15 16:00] VITALS: BP_SYST 147
--- NOTE | 2021-06-15 16:05 | NUR ---
URINE SAMPLE OBTAINED AND TAKEN TO LAB AT THIS TIME.
[2021-06-15] MEDS ORDERED: NPH HUMAN INSULIN ISOPHANE SQ SCH (18:00)
--- NOTE | 2021-06-15 19:37 | NUR ---
ENDORSED ALL CARE TO MO CEBALLOS. ALL QUESTIONS AND CONCERNS ADDRESSED.
[2021-06-15] MEDS: AMITRIPTYLINE HCL 10 MG TABLET (ELAVIL) PO SCH (22:00)
[2021-06-16] VITALS: BP_SYST 140
[2021-06-16] MEDS: NORMAL SALINE 5 ML DISP.SYRIN IVF SCH ×3 (06:32→22:31)
[2021-06-16] MEDS: METOCLOPRAMIDE HCL 10 MG TABLET PO SCH ×4 (06:33→21:07)
[2021-06-16] MEDS: INSULIN REGULAR, HUMAN 100 UNITS/ML, 10 ML VIAL (humuLIN R) SUBCUT PRN ×3 (06:41→17:56)
[2021-06-16 07:02] LABS: BASOPHILS % (AUTO) 0.7 % (0.0-2.0); EOSINOPHILS # (AUTO) 0.5 K/uL (0.0-0.4); EOSINOPHILS % (AUTO) 10.3 % (0.0-4.0); HEMOGLOBIN 12.5 g/dL (12.0-16.0); LYMPHOCYTES # (AUTO) 1.6 K/uL (1.0-5.5); LYMPHOCYTES % (AUTO) 30.9 % (20.5-51.5); MEAN CORPUSCULAR HEMOGLOBIN 34 pg (27-31); MEAN CORPUSCULAR HGB CONC 34 % (32-36); MEAN CORPUSCULAR VOLUME 100 fL (79.0-98.0); MONOCYTES # (AUTO) 0.7 K/uL (0.0-1.0); MONOCYTES % (AUTO) 13.7 % (1.7-9.3); NEUTROPHILS # (AUTO) 2.3 K/uL (1.8-7.7); NEUTROPHILS % (AUTO) 44.4 % (40.0-70.0); PLATELET COUNT (AUTO) 159 K/uL (130-430); RED BLOOD CELL COUNT(AUTO) 3.71 MIL/uL (4.2-6.2); RED CELL DISTRIBUTION WIDTH 14.6 % (9.0-15.0); WHITE BLOOD COUNT (AUTO) 5.1 K/uL (4.8-10.8)
[2021-06-16 07:07] LABS: CREATININE, URINE 129.3 mg/dL (Not Estab.)
--- NOTE | 2021-06-16 07:30 | NUR ---
PT RECEIVED FROM LIN HASSAN. ASSUMED ALL CARE.
[2021-06-16 07:52] LABS: ALBUMIN 1.8 g/dL (3.4-4.8); C-REACTIVE PROTEIN QUANT 1.9 mg/dL (0-0.5); CALCIUM 8.1 mg/dL (8.4-11.0); CREATININE 1.45 mg/dL (0.55-1.30); PHOSPHORUS 3.2 mg/dL (2.7-4.5); POTASSIUM 4.1 mmol/L (3.5-5.1)
[2021-06-16 08:00] VITALS: BP_SYST 135
--- NOTE | 2021-06-16 08:30 | NUR ---
PT TAKEN FOR COLONOSCOPY AT THIS TIME. EDINSON NI MEDS HELD. Addendum: 06/16/21 at 1018 by [facility] Nando disc pad knockout worker NOTED ON WRONG PT.
[2021-06-16] MEDS: LACTULOSE 20 GM/30 ML UDC PO SCH ×3 (08:41→21:00)
[2021-06-16] MEDS: MEROPENEM 500 MG in NS 50 ML IV SCH ×2 (08:41→21:08)
[2021-06-16] MEDS: FUROSEMIDE 20 MG TABLET PO SCH (08:42)
[2021-06-16] MEDS: CHOLECALCIFEROL (VITAMIN D3) 2,000 UNIT TABLET PO SCH (08:42)
[2021-06-16] MEDS: RIFAXIMIN 550 MG TABLET PO SCH ×2 (08:42→21:05)
[2021-06-16] MEDS: MULTIVITAMINS TAB 1 TABLET PO SCH (08:45)
[2021-06-16] MEDS: PROPRANOLOL HCL 10 MG TABLET (INDERAL) PO SCH ×2 (08:45→21:07)
[2021-06-16] MEDS: ASCORBIC ACID 500 MG TABLET PO SCH (08:45)
[2021-06-16] MEDS: FOLIC ACID 1 MG TABLET PO SCH (08:46)
[2021-06-16] MEDS: ALLOPURINOL 100 MG TABLET (ZYLOPRIM) PO SCH (08:46)
[2021-06-16] MEDS: PANTOPRAZOLE SODIUM 40 MG TAB PO SCH (08:46)
[2021-06-16] MEDS: LOSARTAN POTASSIUM 50 MG TABLET (COZAAR) PO SCH ×2 (08:46→21:06)
[2021-06-16] MEDS: DOCUSATE SODIUM 100 MG CAPSULE PO SCH (08:48)
[2021-06-16] MEDS: ENOXAPARIN SODIUM 40 MG/0.4 ML SYRINGE SUBCUT SCH (08:49)
[2021-06-16] MEDS: OMEGA-3/DHA/EPA/FISH OIL 1 GM CAPSULE PO SCH (08:52)
[2021-06-16 09:10] LABS: TOTAL BILIRUBIN 0.6 mg/dL (0.0-1.0); URIC ACID 5.4 mg/dL (2.4-7.0)
[2021-06-16] MEDS: INSULIN NPH 100 UNITS/ML 10 ML VIAL SUBCUT SCH (09:19)
[2021-06-16] MEDS: NYSTATIN 15 GM TOPICAL POWDER TP SCH ×2 (09:20→21:00)
--- NOTE | 2021-06-16 10:14 | NUR ---
PT BACK FROM COLONOSCOPY. B/P 147/71, DENIES PAIN. PT WAS NOTED WITH CECAL POLYP WITH BIOPSY DONE AND HEMORRHOIDS.. Addendum: 06/16/21 at 1017 by [facility] honing job setter WRONG PT NOTED.
[2021-06-16 11:31] LABS: ERYTHROCYTE SEDIMENTATION RATE 37 MM/HR (0-20)
[2021-06-16 12:00] VITALS: BP_SYST 129
[2021-06-16] MEDS ORDERED: BENZONATATE 100 MG CAPSULE (TESSALON) PO PRN (15:00)
--- NOTE | 2021-06-16 15:52 | NUR ---
Dietitian Recommendations * [facility], mechanical soft diet LP, RD Please refer to Nutrition Assessment for details. Addendum: 06/16/21 at [address] Amended: Links added.
[2021-06-16 16:00] VITALS: BP_SYST 142
--- NOTE | 2021-06-16 18:13 | NUR ---
RECEIVED ORDER FROM DR. HARTMAN FOR PULMONARY CONSULT DR. PIKE, PT HAS INCREASED WHEEZING OVER ONE MONTH.
--- NOTE | 2021-06-16 18:29 | NUR ---
AMBULANCE EMT STATED HE WILL NOT TAKE PT BECAUSE HIS SBP <160. CALLED [facility] AND THEY STATED A UNIT WILL BE HERE AT 1630. PT AND T'S FAMILY MADE AWARE. Addendum: 06/16/21 at 1906 by [facility] Five domestic maid CHARTED ON WRONG PT.
--- NOTE | 2021-06-16 21:08 | NUR ---
RECEIVED IN NO DISTRESS. AWAKE AND ALERT. VS WNL. FAMILY AT BEDSIDE. NO C/O PAIN OR DISCOMFORT AT THIS TIME. CALL LIGHT WITHIN REACH. WILL CONTINUE WITH PLAN OF CARE.
[2021-06-16 21:14] VITALS: BP_SYST 147
[2021-06-16] MEDS: AMITRIPTYLINE HCL 10 MG TABLET (ELAVIL) PO SCH (22:29)
[2021-06-17 00:16] VITALS: BP_SYST 119
--- NOTE | 2021-06-17 03:07 | NUR ---
RESTING AT THIS TIME IN NO ACUTE DISTRESS. NO S/S OF PAIN OR DISCOMFORT. CALL LIGHT WITHIN REACH.
--- NOTE | 2021-06-17 04:12 | NUR ---
Consultation Paged Reason for consult: Wheezing increased wheezing over one month Was consult called: Y Person who was notified: Alejandro Consulting Physician: Dr. Stroud Ordering Physician: Torsten Rodas
--- NOTE | 2021-06-17 04:53 | NUR ---
DR. CHONG IN TO SEE PT, UPDATED ON PT CONDITION. NO NEW ORDERS RECEIVED.
[2021-06-17] MEDS: NORMAL SALINE 5 ML DISP.SYRIN IVF SCH (06:00)
[2021-06-17] MEDS: METOCLOPRAMIDE HCL 10 MG TABLET PO SCH ×2 (06:26→13:34)
--- NOTE | 2021-06-17 06:35 | NUR ---
PATIENT REMAINS IN NO DISTRESS, RESTING AT THIS TIME. NO CHANGES IN VS. NO C/O PAIN OR DISCOMFORT. CALL LIGHT WITHIN REACH. WILL BE ENDORSED TO INCOMING SHIFT.
[2021-06-17 07:02] LABS: BASOPHILS % (AUTO) 0.5 % (0.0-2.0); EOSINOPHILS # (AUTO) 0.6 K/uL (0.0-0.4); HEMATOCRIT 37.3 % (36-48); HEMOGLOBIN 12.7 g/dL (12.0-16.0); LYMPHOCYTES % (AUTO) 34.5 % (20.5-51.5); MEAN CORPUSCULAR HEMOGLOBIN 34 pg (27-31); MEAN CORPUSCULAR HGB CONC 34 % (32-36); MEAN CORPUSCULAR VOLUME 100 fL (79.0-98.0); MONOCYTES # (AUTO) 0.6 K/uL (0.0-1.0); MONOCYTES % (AUTO) 10.9 % (1.7-9.3); NEUTROPHILS # (AUTO) 2.6 K/uL (1.8-7.7); NEUTROPHILS % (AUTO) 44.1 % (40.0-70.0); PLATELET COUNT (AUTO) 169 K/uL (130-430); RED BLOOD CELL COUNT(AUTO) 3.74 MIL/uL (4.2-6.2); RED CELL DISTRIBUTION WIDTH 14.6 % (9.0-15.0); WHITE BLOOD COUNT (AUTO) 5.8 K/uL (4.8-10.8)
--- NOTE | 2021-06-17 08:00 | NUR ---
NOTES PATIENT AAOX 4. VITALS SIGNS STABLE. AFEBRILE. LUNGS BILATERALLY DIMINISHED AT THE BASES. ABDOMEN SOFT AND NON DISTENDED. HAS IV ACCESS ON THE LEFT AC #20. SALINE LOCKED. CALL LIGHTS WITHIN REACH. BED LOW POSITION, ALARMED AND LOCKED. HAS VOGT CATHETER IN PLACED DRAINING CLEAR YELLOW URINE. WILL CONTINUE TO MONITOR PATIENT OBESE.
[2021-06-17 08:14] LABS: CALCIUM 8.2 mg/dL (8.4-11.0); CREATININE 1.43 mg/dL (0.55-1.30)
[2021-06-17 08:15] LABS: C-REACTIVE PROTEIN QUANT 2.2 mg/dL (0-0.5); PHOSPHORUS 3.5 mg/dL (2.7-4.5)
--- NOTE | 2021-06-17 09:00 | NUR ---
NO DISTRESS NOR PAIN NOTED. ASSISTS ON ADLS. MADE COMFORTABLE.
[2021-06-17 09:09] VITALS: BP_SYST 125
[2021-06-17] MEDS: MEROPENEM 500 MG in NS 50 ML IV SCH (09:20)
[2021-06-17] MEDS: ENOXAPARIN SODIUM 40 MG/0.4 ML SYRINGE SUBCUT SCH (09:20)
[2021-06-17] MEDS: FOLIC ACID 1 MG TABLET PO SCH (09:21)
[2021-06-17] MEDS: RIFAXIMIN 550 MG TABLET PO SCH (09:21)
[2021-06-17] MEDS: ASCORBIC ACID 500 MG TABLET PO SCH (09:21)
[2021-06-17] MEDS: CHOLECALCIFEROL (VITAMIN D3) 2,000 UNIT TABLET PO SCH (09:21)
[2021-06-17] MEDS: OMEGA-3/DHA/EPA/FISH OIL 1 GM CAPSULE PO SCH (09:21)
[2021-06-17] MEDS: ALLOPURINOL 100 MG TABLET (ZYLOPRIM) PO SCH (09:21)
[2021-06-17] MEDS: LACTULOSE 20 GM/30 ML UDC PO SCH (09:21)
[2021-06-17] MEDS: DOCUSATE SODIUM 100 MG CAPSULE PO SCH (09:22)
[2021-06-17] MEDS: LOSARTAN POTASSIUM 50 MG TABLET (COZAAR) PO SCH (09:22)
[2021-06-17] MEDS: FUROSEMIDE 20 MG TABLET PO SCH (09:23)
[2021-06-17] MEDS: PANTOPRAZOLE SODIUM 40 MG TAB PO SCH (09:23)
[2021-06-17] MEDS: PROPRANOLOL HCL 10 MG TABLET (INDERAL) PO SCH (09:24)
[2021-06-17] MEDS: MULTIVITAMINS TAB 1 TABLET PO SCH (09:25)
[2021-06-17 09:41] LABS: ERYTHROCYTE SEDIMENTATION RATE 38 MM/HR (0-20)
[2021-06-17] MEDS: INSULIN NPH 100 UNITS/ML 10 ML VIAL SUBCUT SCH (09:47)
[2021-06-17] MEDS: NYSTATIN 15 GM TOPICAL POWDER TP SCH (09:48)
--- NOTE | 2021-06-17 10:00 | NUR ---
DUE MEDS GIVEN. ASSISTS ON ADLS.
[2021-06-17] MEDS ORDERED: LEVO500T90 PO (11:23)
[2021-06-17] MEDS ORDERED: PROP10TA10 PO (11:23)
[2021-06-17] MEDS ORDERED: TRAZ-250 PO (11:23)
--- NOTE | 2021-06-17 12:00 | NUR ---
LATEST BS 231 MG/DL. COVERAGE GIVEN. WILL CONTINUE TO MONITOR PATIENTS STATUS. HAD LUNCH TRAY. EATING GOOD.
[2021-06-17 12:37] VITALS: BP_SYST 128
[2021-06-17 12:47] VITALS: BP_SYST 127
--- NOTE | 2021-06-17 13:50 | NUR ---
PATIENT LEFT IN STABLE CONDITION. WHEELED BY THE STUDENT NURSE NAMED BAO. ACCOMPANIED BY THE . DISCHARGE SUMMARY GIVEN AND SIGNED. DISCHARGE INSTRUCTION ON MEDICATION TO PEOPLE MANAGER AT [facility]. PHARMACY AND FOLLOW UP CARE WITH THE PCP IN ONE WEEK. CONTINUE TAKING PREVIOUS MEDICATION ORDERED. SDCH I D BAND REMOVED. IV ACCESS REMOVED.
[2021-06-20 14:01] LABS: URINE SODIUM, RANDOM 60 mmol/L (40-220)
--- NOTE | 2021-06-23 11:17 | NUR ---
Corporate Director Of Pharmacy HAND I BLOCKER made a Post Discharge Follow-Up Phone Call to former patient, Sidra Viramontes, who stated she was still sick and has a cough. Wander went to a lung specialist and saw a Rn practioner, Wai Woodruff who heard rattling in her back and prescribed a nebulizer but this model is not covered with their insurance. , Mart was on the phone with the phamacy and took this call to speak to HAND I BLOCKER stating his should have never been discharged from [facility]. He did not want to speak anylonger as he was focused on speaking to the pharmacy. HAND I BLOCKER was able to say if he feels she needs urgent medical attention, to bring her back to the ER.
== END 2021-06-17 13:50 | disposition home or self-care (01) | DRG 871 ==
LOC: SED 12:30 → SMU 18:23
PROVIDERS: ADMIT Preventive Medicine Preventive Medicine/Occupational Environmental Medicine; ATTEND Preventive Medicine Preventive Medicine/Occupational Environmental Medicine
DX: A41.51 Sepsis due to Escherichia coli [E. coli] (principal); J96.20 Acute and chronic respiratory failure, unspecified whether with hypoxia or hypercapnia; E43 Unspecified severe protein-calorie malnutrition; N39.0 Urinary tract infection, site not specified; N17.9 Acute kidney failure, unspecified; D84.9 Immunodeficiency, unspecified; Z68.41 Body mass index [BMI] 40.0-44.9, adult; R18.8 Other ascites; I12.9 Hypertensive chronic kidney disease with stage 1 through stage 4 chronic kidney disease, or unspecified chronic kidney disease; N18.9 Chronic kidney disease, unspecified; E11.22 Type 2 diabetes mellitus with diabetic chronic kidney disease; E11.65 Type 2 diabetes mellitus with hyperglycemia; E66.01 Morbid (severe) obesity due to excess calories; K31.84 Gastroparesis; E11.43 Type 2 diabetes mellitus with diabetic autonomic (poly)neuropathy; E83.52 Hypercalcemia; K31.819 Angiodysplasia of stomach and duodenum without bleeding; K74.60 Unspecified cirrhosis of liver; U09.9 Post COVID-19 condition, unspecified; Z20.822 Contact with and (suspected) exposure to COVID-19; Z87.01 Personal history of pneumonia (recurrent); Z87.891 Personal history of nicotine dependence; Z88.8 Allergy status to other drugs, medicaments and biological substances; Z88.1 Allergy status to other antibiotic agents; Z88.2 Allergy status to sulfonamides; Z79.899 Other long term (current) drug therapy; Z85.05 Personal history of malignant neoplasm of liver
CPT/HCPCS: 36415; 71045; 72170-TC; 80048; 80053; 81000; 82043; 82140; 82570; 82962; 83036; 83605; 83735; 84100; 84302; 84484; 84550; 85025; 85651-TC; 86140; 87040; 87086; 93005; 96361; 96374; 99291; J1650; J1815; J2185; J2270; J7030; J8597